=== PATIENT | female | born 1960 | race Caucasian/White ===

== ENCOUNTER 2017-08-30 15:36 | Emergency (ER) | payer MEDICAID ==
[~2017-08-30] VITALS: Ht 167.6 cm; Wt 102.0 kg
[~2017-08-30 15:36] MED LIST: ALBU18HF2 INH; AMLO2.5T PO; ARIP15TA3 PO; ATOR40TA3 PO; BECL7.3A INH; CHOL10002 PO; FAMO-129 PO; FLUT16SP10; HYDR100C2 PO; LOSA25TA96 PO; LURA120T PO; OMEG1CAP21 PO; TRAM50TA2 PO; TRAZ-143 PO
[2017-08-30] MEDS ORDERED: ketorolac trometh inj. 60 MG/2 ML VIAL IM ONE (15:50)
[2017-08-30 16:05] VITALS: BP 105/72
== END 2017-08-30 16:04 | disposition home or self-care (01) ==
LOC: ER 15:36
DX: R68.84 Jaw pain (principal); E11.9 Type 2 diabetes mellitus without complications; E78.00 Pure hypercholesterolemia, unspecified; I10 Essential (primary) hypertension; G89.29 Other chronic pain; K21.9 Gastro-esophageal reflux disease without esophagitis; Z90.49 Acquired absence of other specified parts of digestive tract; Z98.890 Other specified postprocedural states; Z88.2 Allergy status to sulfonamides; Z88.6 Allergy status to analgesic agent; Z79.899 Other long term (current) drug therapy; Z56.0 Unemployment, unspecified
CPT/HCPCS: 96372; 99283; J1885

== ENCOUNTER 2017-09-14 08:40 | Emergency (ER) | payer MEDICAID ==
[~2017-09-14] VITALS: Ht 167.6 cm; Wt 114.0 kg
[2017-09-14 08:44] VITALS: BP 120/61
[2017-09-14] MEDS ORDERED: AMOX-422 PO (09:10)
== END 2017-09-14 09:20 | disposition home or self-care (01) ==
LOC: ER 08:40
DX: N61.0 Mastitis without abscess (principal); I10 Essential (primary) hypertension; G89.29 Other chronic pain; E78.00 Pure hypercholesterolemia, unspecified; E11.9 Type 2 diabetes mellitus without complications; K21.9 Gastro-esophageal reflux disease without esophagitis; G43.909 Migraine, unspecified, not intractable, without status migrainosus; Z90.49 Acquired absence of other specified parts of digestive tract; Z88.2 Allergy status to sulfonamides; Z88.1 Allergy status to other antibiotic agents; Z88.6 Allergy status to analgesic agent; Z79.899 Other long term (current) drug therapy; Z98.890 Other specified postprocedural states; Z56.0 Unemployment, unspecified
CPT/HCPCS: 99283

== ENCOUNTER 2017-09-25 20:48 | Emergency (ER) | payer MEDICAID ==
[~2017-09-25] VITALS: Ht 167.6 cm; Wt 102.5 kg
[2017-09-25] MEDS ORDERED: PROP40TA72 PO (22:04)
[2017-09-25] MEDS ORDERED: CYCL-394 PO (22:04)
[2017-09-25] MEDS ORDERED: OMEP40CA37 PO (22:04)
[2017-09-25] MEDS ORDERED: LORA10TA7 PO (22:04)
[2017-09-25] MEDS ORDERED: PRAZ2CAP2 PO (22:04)
[2017-09-25] MEDS ORDERED: ASPI-1265 PO (22:04)
[2017-09-25] MEDS ORDERED: DULO-31 PO (22:04)
[2017-09-25] MEDS ORDERED: ARMO250T4 PO (22:04)
[2017-09-25] MEDS ORDERED: EPIN0.3P8 IM (22:04)
[2017-09-25] MEDS ORDERED: ARIP400S3 IM (22:04)
[2017-09-25] MEDS ORDERED: HYDR-569 PO (22:04)
[2017-09-25] MEDS ORDERED: GABA600T PO (22:04)
[2017-09-25] MEDS ORDERED: normal saline 1000ml 1,000 ML IV ONE (22:21)
[2017-09-25] MEDS ORDERED: vancomycin/NS 1 GM ADD-VANTAGE 250 ML IV ONE (22:25)
[2017-09-25] MEDS ORDERED: morphine 4 MG/ML inj SYRINge IV ONE (22:25)
[2017-09-25] MEDS ORDERED: morphine 4 MG/ML inj SYRINge IV PRN (22:25)
[2017-09-25] MEDS ORDERED: normal saline 1000ML IV soln IVB ONE (22:25)
[2017-09-25 22:33] LABS: BASOPHILS # (AUTO) 0.1 X10'3 (0-0.2); BASOPHILS % (AUTO) 0.7 % (0-1); EOSINOPHILS # (AUTO) 0.6 X10'3 (0-0.9); EOSINOPHILS % (AUTO) 4.1 % (0-6); HEMATOCRIT 36.6 % (35.0-45.0); HEMOGLOBIN 12.4 g/dl (12.0-16.0); LYMPHOCYTES # (AUTO) 2.9 X10'3 (1.1-4.8); LYMPHOCYTES % (AUTO) 21.2 % (21-51); MEAN CORPUSCULAR HEMOGLOBIN 28.2 PG (27.0-31.0); MEAN CORPUSCULAR HGB CONC 33.9 % (33.0-36.5); MEAN PLATELET VOLUME 7.6 FL (7.4-10.4); MONOCYTES # (AUTO) 1.1 X10'3 (0-0.9); MONOCYTES % (AUTO) 8.4 % (2-12); NEUTROPHILS # (AUTO) 8.9 X10'3 (1.8-7.7); NEUTROPHILS % (AUTO) 65.6 % (42-75); PLATELET COUNT 309 X10'3 (140-440); RED BLOOD COUNT 4.41 X10'6 (4.20-5.60); RED CELL DISTRIBUTION WIDTH 13.1 % (11.5-14.5); WHITE BLOOD COUNT 13.6 X10'3 (4.5-11.0)
[2017-09-25 22:43] LABS: ALANINE AMINOTRANSFERASE 16 U/L (12-78); ALBUMIN 3.1 G/DL (3.4-5.0); ALBUMIN/GLOBULIN RATIO 0.8 (1.1-1.5); ALKALINE PHOSPHATASE 104 IU/L (46-116); ANION GAP 8 (8-16); ASPARTATE AMINO TRANSFERASE 11 U/L (10-37); BILIRUBIN,TOTAL 0.3 MG/DL (0.1-1.0); BLOOD UREA NITROGEN 22 MG/DL (7-18); BUN/CREATININE RATIO 13.8 (6.6-38.0); CALCIUM 9.7 MG/DL (8.5-10.1); CHLORIDE 95 MMOL/L (99-107); GLUCOSE 134 MG/DL (70-104); MAGNESIUM 1.7 MG/DL (1.5-2.4); SODIUM 131 MMOL/L (135-145); TOTAL CARBON DIOXIDE 27.9 MMOL/L (24-32); TOTAL PROTEIN 7.2 G/DL (6.4-8.2); eGFR 33 ML/MIN
[2017-09-26] MEDS ORDERED: normal saline 1000ML IV soln IVB ONE (00:45)
[2017-09-26 01:28] VITALS: BP 151/77
== END 2017-09-26 01:30 | disposition home or self-care (01) ==
LOC: ER 20:51
DX: N63.0 Unspecified lump in unspecified breast (principal); N61.0 Mastitis without abscess; N17.9 Acute kidney failure, unspecified; E86.0 Dehydration; I25.10 Atherosclerotic heart disease of native coronary artery without angina pectoris; E78.00 Pure hypercholesterolemia, unspecified; I10 Essential (primary) hypertension; K21.9 Gastro-esophageal reflux disease without esophagitis; G89.29 Other chronic pain; E11.9 Type 2 diabetes mellitus without complications; F17.210 Nicotine dependence, cigarettes, uncomplicated; Z90.49 Acquired absence of other specified parts of digestive tract; Z98.890 Other specified postprocedural states; Z56.0 Unemployment, unspecified; Z88.2 Allergy status to sulfonamides; Z88.1 Allergy status to other antibiotic agents; Z79.899 Other long term (current) drug therapy; Z79.82 Long term (current) use of aspirin
CPT/HCPCS: 36415; 71250; 80053; 83605; 83735; 85025; 87040; 87070; 87077; 87186; 96361; 96365; 96366; 96375; 96376; 99285; 99406; A6449; J2270; J3370; J7030

== ENCOUNTER 2017-10-01 09:13 | Emergency (ER) | payer MEDICAID ==
[~2017-10-01] VITALS: Ht 167.6 cm; Wt 113.6 kg
[~2017-10-01 09:13] MED LIST changes: -ARIP15TA3 PO; +ARIP400S3 IM; +ARMO250T4 PO; +ASPI-1265 PO; +CYCL-394 PO; +DULO-31 PO; +EPIN0.3P8 IM; -FAMO-129 PO; +GABA600T PO; +HYDR-569 PO; +LORA10TA7 PO; -LURA120T PO; +OMEP40CA37 PO; +PRAZ2CAP2 PO; +PROP40TA72 PO
[2017-10-01 09:44] LABS: BASOPHILS # (AUTO) 0.1 X10'3 (0-0.2); BASOPHILS % (AUTO) 0.7 % (0-1); EOSINOPHILS # (AUTO) 0.3 X10'3 (0-0.9); EOSINOPHILS % (AUTO) 2.3 % (0-6); HEMATOCRIT 39.6 % (35.0-45.0); HEMOGLOBIN 13.4 g/dl (12.0-16.0); LYMPHOCYTES # (AUTO) 2.6 X10'3 (1.1-4.8); LYMPHOCYTES % (AUTO) 19.2 % (21-51); MEAN CORPUSCULAR HEMOGLOBIN 28.1 PG (27.0-31.0); MEAN CORPUSCULAR HGB CONC 33.8 % (33.0-36.5); MEAN CORPUSCULAR VOLUME 83.2 FL (78-98); MEAN PLATELET VOLUME 6.5 FL (7.4-10.4); MONOCYTES % (AUTO) 7.2 % (2-12); NEUTROPHILS # (AUTO) 9.4 X10'3 (1.8-7.7); NEUTROPHILS % (AUTO) 70.6 % (42-75); PLATELET COUNT 351 X10'3 (140-440); RED BLOOD COUNT 4.76 X10'6 (4.20-5.60); RED CELL DISTRIBUTION WIDTH 13.6 % (11.5-14.5); WHITE BLOOD COUNT 13.3 X10'3 (4.5-11.0)
[2017-10-01 09:59] LABS: ALANINE AMINOTRANSFERASE 20 U/L (12-78); ALBUMIN 3.3 G/DL (3.4-5.0); ALBUMIN/GLOBULIN RATIO 0.8 (1.1-1.5); ALKALINE PHOSPHATASE 112 IU/L (46-116); ANION GAP 10 (8-16); ASPARTATE AMINO TRANSFERASE 13 U/L (10-37); BILIRUBIN,TOTAL 0.2 MG/DL (0.1-1.0); BLOOD UREA NITROGEN 25 MG/DL (7-18); CALCIUM 10.1 MG/DL (8.5-10.1); CHLORIDE 98 MMOL/L (99-107); CREATININE 1.79 MG/DL (0.40-0.90); GLUCOSE 98 MG/DL (70-104); POTASSIUM 4.1 MMOL/L (3.5-5.1); SODIUM 134 MMOL/L (135-145); TOTAL PROTEIN 7.5 G/DL (6.4-8.2); eGFR 29 ML/MIN
[2017-10-01] MEDS ORDERED: CEPH-571 PO (10:04)
[2017-10-01 10:18] VITALS: BP 108/75
== END 2017-10-01 10:19 | disposition home or self-care (01) ==
LOC: ER 09:13
DX: L08.9 Local infection of the skin and subcutaneous tissue, unspecified (principal); N64.4 Mastodynia; G43.909 Migraine, unspecified, not intractable, without status migrainosus; E78.00 Pure hypercholesterolemia, unspecified; I10 Essential (primary) hypertension; K21.9 Gastro-esophageal reflux disease without esophagitis; E11.9 Type 2 diabetes mellitus without complications; G89.29 Other chronic pain; Z98.890 Other specified postprocedural states; Z90.49 Acquired absence of other specified parts of digestive tract; Z56.0 Unemployment, unspecified; Z88.2 Allergy status to sulfonamides; Z88.8 Allergy status to other drugs, medicaments and biological substances; Z79.82 Long term (current) use of aspirin; Z79.899 Other long term (current) drug therapy
CPT/HCPCS: 36415; 80053; 85025; 99284

== ENCOUNTER 2018-02-15 15:06 | Emergency (ER) | payer MEDICAID ==
[~2018-02-15] VITALS: Ht 167.6 cm; Wt 112.0 kg
[~2018-02-15 15:06] MED LIST changes: -AMLO2.5T PO; +AMLO2.5T4 PO; +CEPH-571 PO; +HYDR-4383 PO; -HYDR-569 PO; -TRAZ-143 PO; +TRAZ-218 PO
[2018-02-15] MEDS ORDERED: GABA-532 PO (15:32)
[2018-02-15 15:45] VITALS: BP 132/75
== END 2018-02-15 15:45 | disposition home or self-care (01) ==
LOC: ER 15:07
DX: G57.83 Other specified mononeuropathies of bilateral lower limbs (principal); M79.661 Pain in right lower leg; M79.662 Pain in left lower leg; G43.909 Migraine, unspecified, not intractable, without status migrainosus; E78.00 Pure hypercholesterolemia, unspecified; I10 Essential (primary) hypertension; K21.9 Gastro-esophageal reflux disease without esophagitis; E11.9 Type 2 diabetes mellitus without complications; G89.29 Other chronic pain; Z88.1 Allergy status to other antibiotic agents; Z88.2 Allergy status to sulfonamides; Z88.8 Allergy status to other drugs, medicaments and biological substances; Z88.6 Allergy status to analgesic agent; Z79.899 Other long term (current) drug therapy; Z79.82 Long term (current) use of aspirin; Z90.49 Acquired absence of other specified parts of digestive tract; Z98.890 Other specified postprocedural states; Z56.0 Unemployment, unspecified
CPT/HCPCS: 82948; 99283

== ENCOUNTER 2018-09-14 07:05 | Emergency (ER) | payer MEDICAID ==
[~2018-09-14] VITALS: Ht 167.6 cm; Wt 101.9 kg
[~2018-09-14 07:05] MED LIST changes: -ATOR40TA3 PO; +ATOR40TA7 PO; +GABA-532 PO; -TRAZ-218 PO; +TRAZ-251 PO
[2018-09-14 07:17] VITALS: BP 101/69
[2018-09-14] MEDS ORDERED: dexamethasone sod phosphate 10mg/ml inj PO STA (07:47)
[2018-09-14] MEDS ORDERED: amox tr/potassium clavulanate 875/125mg TAB PO ONE (07:50)
[2018-09-14] MEDS ORDERED: AMOX-580 PO (07:51)
== END 2018-09-14 08:00 | disposition home or self-care (01) ==
LOC: ER 07:06
DX: K11.20 Sialoadenitis, unspecified (principal); G43.909 Migraine, unspecified, not intractable, without status migrainosus; E78.00 Pure hypercholesterolemia, unspecified; I10 Essential (primary) hypertension; K21.9 Gastro-esophageal reflux disease without esophagitis; E11.9 Type 2 diabetes mellitus without complications; F17.210 Nicotine dependence, cigarettes, uncomplicated; G89.29 Other chronic pain; Z90.49 Acquired absence of other specified parts of digestive tract; Z98.890 Other specified postprocedural states; Z56.0 Unemployment, unspecified; Z88.2 Allergy status to sulfonamides; Z88.8 Allergy status to other drugs, medicaments and biological substances; Z88.1 Allergy status to other antibiotic agents; Z79.899 Other long term (current) drug therapy
CPT/HCPCS: 99283; J1100

== ENCOUNTER 2019-10-06 07:56 | Day surgery (SDC) | payer MEDICAID ==
[~2019-10-06] VITALS: Ht 167.6 cm; Wt 109.9 kg
[~2019-10-06 07:56] MED LIST changes: +OMEP40CA13 PO; -OMEP40CA37 PO
[2019-10-06 08:10] VITALS: BP 169/97
[2019-10-06] MEDS ORDERED: fentaNYL/PF 50MCG/1 ML 2ML syringe ONE (08:40)
[2019-10-06] MEDS ORDERED: MIDAZolam 5mg/5ml vial ONE (08:41)
[2019-10-06] MEDS ORDERED: LIDOcaine Viscous 15ml cup ONE (08:42)
[2019-10-06 10:05] VITALS: BP 140/71
[2019-10-06 10:15] VITALS: BP 137/105
[2019-10-06 10:25] VITALS: BP 142/89
[2019-10-06 10:35] VITALS: BP 154/94
== END 2019-10-06 11:04 | disposition home or self-care (01) ==
LOC: GI LAB 07:56
PROVIDERS: ATTEND Internal Medicine Gastroenterology
DX: R11.2 Nausea with vomiting, unspecified (principal); K29.50 Unspecified chronic gastritis without bleeding
CPT/HCPCS: 43239; 99152; J2250; J3010; J7040; A4620

== ENCOUNTER 2019-11-05 08:53 | Day surgery (SDC) | payer MEDICAID ==
[~2019-11-05] VITALS: Ht 167.6 cm; Wt 106.8 kg
[~2019-11-05 08:53] MED LIST changes: -CEPH-571 PO; -CYCL-394 PO; -FLUT16SP10; -GABA-532 PO; -HYDR-4383 PO; -PRAZ2CAP2 PO
[2019-11-05 09:00] VITALS: BP 119/91
[2019-11-05] MEDS ORDERED: fentaNYL/PF 50MCG/1 ML 2ML syringe ONE (09:11)
[2019-11-05] MEDS ORDERED: MIDAZolam 5mg/5ml vial ONE (09:13)
[2019-11-05 11:14] VITALS: BP 119/81
[2019-11-05 11:24] VITALS: BP 130/81
[2019-11-05 11:34] VITALS: BP 141/80
[2019-11-05 11:44] VITALS: BP 156/88
== END 2019-11-05 12:05 | disposition home or self-care (01) ==
LOC: GI LAB 08:53
PROVIDERS: ATTEND Internal Medicine Gastroenterology
DX: Z12.11 Encounter for screening for malignant neoplasm of colon (principal); D12.3 Benign neoplasm of transverse colon; K62.1 Rectal polyp; K57.30 Diverticulosis of large intestine without perforation or abscess without bleeding; K64.8 Other hemorrhoids; Z86.010 Personal history of colon polyps
CPT/HCPCS: 45380; 45385; 99152; 99153; C1773; J2250; J3010; J7040; A4620